=== PATIENT | male | born 1970 | race Caucasian/White ===

== ENCOUNTER 2019-05-22 11:48 | Emergency (ER) | payer OTHER ==
[~2019-05-22] VITALS: Ht 170.2 cm; Wt 113.4 kg
[2019-05-22] MEDS ORDERED: METHOCARBAMOL 500 MG TAB PO ONE (14:45)
[2019-05-22] MEDS ORDERED: KETOROLAC TROMETH 60MG/2ML VIAL IM ONE (14:45)
[2019-05-22 15:35] VITALS: BP 136/98
== END 2019-05-22 15:43 | disposition home or self-care (01) ==
LOC: ER 11:48
DX: M54.16 Radiculopathy, lumbar region (principal); F17.210 Nicotine dependence, cigarettes, uncomplicated
CPT/HCPCS: 72100; 96372; 99283; J1885